=== PATIENT | male | born 1945 | race Caucasian/White ===

== ENCOUNTER 2017-06-17 01:20 | Inpatient (IN) | payer MEDICARE, OTHER ==
[2017-06-17] VITALS (7 sets, daily range): BP systolic 137–158; BP diastolic 67–87
[~2017-06-17] VITALS: Ht 175.3 cm; Wt 97.5 kg
[2017-06-17] MEDS ORDERED: DIOVAN 80 MG TA80 M1 PO (01:33)
[2017-06-17] MEDS ORDERED: CIALIS5 MG PO (01:33)
[2017-06-17] MEDS ORDERED: ADVAIR 250-501 EACH INH (01:33)
[2017-06-17] MEDS ORDERED: VENTOLIN HFA 1818 GM INH (01:34)
[2017-06-17] MEDS ORDERED: ASPIR 8181 MG PO (01:34)
[2017-06-17] MEDS ORDERED: CHERATUSSIN AC118 ML PO (01:35)
[2017-06-17 01:46] LABS: ABSOLUTE EOSINOPHILS 0.1 thou/uL (0.0-0.7); ABSOLUTE LYMPHOCYTES 1.1 thou/uL (0.8-5.3); ABSOLUTE MONOCYTES 0.7 thou/uL (0.0-1.2); ABSOLUTE NEUTROPHILS 4.6 thou/uL (1.6-8.1); BASOPHILS 0.4 %; EOSINOPHILS 1.1 %; HEMATOCRIT 44.8 % (42.0-52.0); HEMOGLOBIN 14.8 gm/dL (14.0-18.0); LYMPHOCYTES 16.4 %; MCH 32.2 pg (26.0-34.0); MCHC 33.1 g/dL (28.0-37.0); MCV 97.1 fL (80.0-100.0); MONOCYTES 10.9 %; MPV 8.5 fl. (7.2-11.1); NUCLEATED RBCS 0 /100WBC; PLATELET COUNT* 164 thou/uL (150-400); POLYS 71.2 %; RBC 4.61 mil/uL (4.50-6.00); WBC 6.5 thou/uL (4.0-11.0)
[2017-06-17 01:59] LABS: CALCIUM 9.4 mg/dL (8.5-10.1); CREATININE 0.5 mg/dL (0.6-1.3); POTASSIUM 4.2 mmol/L (3.5-5.1)
[2017-06-17 02:10] LABS: ALBUMIN 3.1 g/dL (3.4-5.0); TOTAL BILIRUBIN 0.4 mg/dL (<0.1-1.0); TOTAL PROTEIN 6.8 g/dL (6.4-8.2)
[2017-06-17 02:17] LABS: INFLUENZA A ANTIGEN None Detected (None Detect); INFLUENZA B ANTIGEN None Detected (None Detect)
[2017-06-17 03:12] LABS: URINE BILIRUBIN NEGATIVE (Negative); URINE BLOOD NEGATIVE (Negative); URINE CLARITY CLEAR; URINE COLOR YELLOW; URINE GLUCOSE-RANDOM NEGATIVE (Negative); URINE KETONES NEGATIVE (Negative); URINE LEUKOCYTES-REFLEX NEGATIVE (Negative); URINE NITRITE-REFLEX NEGATIVE (Negative); URINE PROTEIN 1+ (Negative); URINE SPECIFIC GRAVITY >= 1.030 (1.005-1.030); URINE UROBILINOGEN 0.2 E.U./dl (0.2-1.0)
[2017-06-17] MEDS ORDERED: EXCEDRIN CAPLE1 EACH PO (05:30)
[2017-06-17] MEDS ORDERED: CLARITIN10 MG PO (05:30)
--- NOTE | 2017-06-17 06:31 | NUR ---
PATIENT ARRIVED VIA CART FROM ED AROUND 0435. PT FRUSTRATED TO BE ADMITTED TO HOSPITAL AND VOCAL ABOUT IT. A/OX4, AT BEDSIDE. TELE MONITOR TRACING SR. VSS, AFEBRILE. ON 4L NC, LOOSE COUGH- UNABLE TO COUGH UP. IV'S SALINE LOCKED AND PATENT. REPORTING PAIN IN BACK, REPOSITIONED IN BED AND STATED IT WOULD HELP. SEE ADMISSION HISTORY/ASSESSMENT. MED'S RECONCILED TO BE ORDERED. CALL LIGHT IN REACH, FALL PRECAUTIONS IN PLACE, WILL CONTINUE WITH PLAN OF CARE.
--- NOTE | 2017-06-17 11:26 | EKG ---
[place] [address] ELECTROCARDIOGRAM REPORT Name: CATRACHO CORREIA Room: [address] ADM IN .R.#: [id number] Admission: 06/17/17 Attend Phys: Daniel Vargas MD Discharge: Date of : 49 Report #: [id number] THIS REPORT FOR: //name// [facility] ED Test Date: 2017-06-17 Test Time: 01:51:53 Pat Name: CATRACHO CORREIA Department: Room: [facility] Gender: Medical Surgical Tech: LEYDI Hebert : 1945 Requested By: Lucretia Elder Order Number: [id number] MD: Jasmeet Harmon Measurements Intervals [place] Rate: 86 P: -43 IA: 175 QRS: -14 QRSD: 140 T: -36 QT: 400 QTc: 479 Interpretive Statements Sinus rhythm IVCD, consider atypical RBBB Anteroseptal infarct, age indeterminate No previous ECG available for comparison Electronically Signed On 06-17-2017 11:25:57 SOCIAL WORK INSTRUCTOR by Jasmeet Harmon [email or web address] <ELECTRONICALLY SIGNED> By: Jasmeet Harmon MD, [facility] 06/17/17 1125 0151 0151 Jasmeet Harmon MD, [facility] /EPI
--- NOTE | 2017-06-17 15:55 | NUR ---
CM ASSESSMENT: Pt is A&O. Resides at home with his . Pt requires assist with ADLS. Pt uses a walker for mobility with assist, also has a wc. Pt wears home o2. Hx of HH. No hx of SNF. PT/OT evals ordered. Pt's goal is to return home once medically stable. Supportive family that is involved in POC.
--- NOTE | 2017-06-17 18:14 | NUR ---
ASSUMED CARE OF PT AT 0730. PT CONTINUES TO BE A&O X4 CALM AND COOPERATIVE. HE HAS NO C/O PAIN AND HAS BEEN AMBULATING TO THE BATHROOM WITH 1 ASSIST AND A WALKER. TRACING SA WITH A BBB ON THE MONITOR. PT HAS A GOOD APPETITE AND HAS ATE GREATER THAN 75% OF ALL MEALS TODAY. PT CURRENTLY RESTING IN ROOM IN THE RECLINER WITH . NURSING WILL CONTINUE TO MONITOR.
[2017-06-18] VITALS: BP 139/63
--- NOTE | 2017-06-18 02:15 | NUR ---
RESTING MOST OF NIGHT. AT BEDSIDE. CONT. ABX WITHOUT ADVERSE REACTION NOTED. SLEEPING IN RECLINER. PATIENT VOICES NO COMPLAINTS OF PAIN OR DISCOMFORT. SPUTUM NEEDED WILL ATTEMPT 1ST THINK IN AM. NO SIGNS OF DISTRESS, NO DISCOMFORT. CONT. WITH CURRENT PLAN OF CARE AT THIS TIME.
[2017-06-18 04:00] VITALS: BP 141/66
[2017-06-18 05:38] LABS: HEMATOCRIT 42.6 % (42.0-52.0); HEMOGLOBIN 14.3 gm/dL (14.0-18.0); MCH 32.7 pg (26.0-34.0); MCHC 33.6 g/dL (28.0-37.0); MCV 97.1 fL (80.0-100.0); MPV 9.2 fl. (7.2-11.1); RBC 4.39 mil/uL (4.50-6.00); WBC 5.5 thou/uL (4.0-11.0)
[2017-06-18 06:09] LABS: CALCIUM 8.4 mg/dL (8.5-10.1); CREATININE 0.6 mg/dL (0.6-1.3); MAGNESIUM 1.9 mg/dL (1.8-2.4); POTASSIUM 4.2 mmol/L (3.5-5.1)
[2017-06-18 08:07] VITALS: BP 134/81
[2017-06-18] MEDS ORDERED: NEBULIZER MISCELL (10:50)
[2017-06-18] MEDS ORDERED: DUONEB 2.5-0.5 M3 ML INH (10:50)
--- NOTE | 2017-06-18 10:50 | NUR ---
ORDERS RECEIVED 06/17/17, PATIENT REFUSED EVALUATION 06/17/17. PATIENT SEEN THIS DATE FOR SKILLED OT EVALUATION AND PAITENT/SPOUSE DECLINED SERVICES. THEY STATE THAT THEY ARE WELL EQUIPED AT HOME AND HAVE THEIR ROUTINE, CARES FOR PATIENT. THEY BOTH STATE THAT THEY FEEL MORE COMFORTABLE AT HOME THAN HERE AND WISH TO RETURN HOME SOON PHYSICIANS RELEASE, AWAITING ORAL ANTIBIOTICS INSTEAD OF IV. SKILLED OT SERVICES NOT INDICATED AT THIS TIME DUE TO PATIENT AND SPOUSE REFUSAL.
--- NOTE | 2017-06-18 11:46 | NUR ---
P.T. ORDER RECEIVED 06/17/17. P.T. EVAL ATTEMPTED 06/17/17, PT REFUSED. EVAL ATTEMPTED AGAIN TODAY. PT AGAIN REFUSED AND INDICATED HE DOES NOT WISH TO HAVE P.T. SERVICES. WILL DISCHARGE FROM [facility] DUE TO PT REQUEST.
[2017-06-18 16:10] VITALS: BP 110/59
--- NOTE | 2017-06-18 18:28 | NUR ---
ASSUMED CARE OF PT AT 0730. PT CONTINUES TO BE A&O X4 CALM AND COOPERATIVE. PT DENIES ANY C/O PAIN OR DISTRESS. PT AMBULATES TO THE BATHROOM WITH 1 ASSIST AND ROLLING WALKER. PT HAS HAD A GOOD APPETITE AND ATE GREATER THAN 75% OF ALL MEALS TODAY. PT PREFERS TO BE IN THE RECLINER OPPOSED TO THE BED. PT FEET ELEVATED WHILE IN RECLINER. PT MAINTAINING O2 SATS ON 3L VIA NC WITH COARSE AND WHEEZEY LUNG SOUNDS THAT HAVE IMPROVED SINCE YESTERDAY. PT REPORTS FEELING LESS SOA TODAY WHEN AMBUULATING. PT CURRENTLY RESTING IN RECLINER WITH FEET UP WATCHING TV. CALL LIGHT ANND PERSONAL ITEMS IN REACH, NURSING WILL CONTINUE TO MONITOR.
[2017-06-18 20:00] VITALS: BP 141/71
[2017-06-19] VITALS: BP 129/75
[2017-06-19 05:42] LABS: ABSOLUTE EOSINOPHILS 0.1 thou/uL (0.0-0.7); ABSOLUTE LYMPHOCYTES 1.7 thou/uL (0.8-5.3); ABSOLUTE MONOCYTES 0.8 thou/uL (0.0-1.2); ABSOLUTE NEUTROPHILS 5.7 thou/uL (1.6-8.1); BASOPHILS 0.3 %; EOSINOPHILS 1.7 %; HEMATOCRIT 45.5 % (42.0-52.0); HEMOGLOBIN 15.1 gm/dL (14.0-18.0); LYMPHOCYTES 20.6 %; MCHC 33.3 g/dL (28.0-37.0); MCV 99.3 fL (80.0-100.0); MONOCYTES 9.8 %; MPV 9.7 fl. (7.2-11.1); NUCLEATED RBCS 0 /100WBC; PLATELET COUNT* 113 thou/uL (150-400); POLYS 67.6 %; RBC 4.58 mil/uL (4.50-6.00); RDW-CV 13.5 % (10.5-14.5); WBC 8.4 thou/uL (4.0-11.0)
--- NOTE | 2017-06-19 05:42 | NUR ---
ASSUMED CARE OF PT AT 1930, NURSING ASSESSMENT COMPLETED AT START OF SHIFT, PT RESTING IN RECLINER, STATES HE ALWAYS SLEEPS IN RECLINER AT HOME. MED SURG STATUS, SPOUSE AT BEDSIDE, NO CONCERNS VOICED AT THIS TIME. CALL LIGHT REMAINS WITHIN REACH.
[2017-06-19 08:11] VITALS: BP 144/84
--- NOTE | 2017-06-19 09:39 | NUR ---
ASSUMED CARE OF PT THIS AM AROUND 0715- UPON ASSESSMENT PT NOTED TO BE RESTING IN BED SIDE CHAIR- PT A&O X4- CONTINENT OF BOWEL AND BLADDER- EXTENSIVE ASSIST WITH TRANSFERS REQUIRED, WITH RW AND GAIT BELT- CURSE LUNG SOUNDS WITH AUDIBLE WHEEZING NOTED, DRY COUGH NOTED- LABORED BREATHING WITH DYSPNEA NOTED ON EXERTION- VSS, O2 SAT 91% ON 5L HF NC- ABDOMEN SOFT/ROUND/NON-TENDER, BS X4 QUADS- PT REPORTS BM THIS AM- +1 BLE EDEMA NOTED, LEG ELEVATION ENCOURAGED- IV NOTED TO RIGHT AC AND RIGHT HAND SL, IV ABT GIVEN THIS AM, NO ADVERSE REACTIONS TO NOTE- GOOD PO INTAKE NOTED THIS AM WITH BREAKFAST- CHEST X-RAY COMPLETED THIS AM ORDERED, RESULTS SHOW PERSITENT LOWER LOBE ATELECTASIS/PNEUMONITIS, CADIOMEGALY- PT RATES PAIN 5/10 TO BACK THIS AM, DENIES NEED FOR PAIN MEDICATION AT THIS TIME- CALL LIGHT AND PERSOANL BELONGINGS WITH IN REACH- AT SIDE AND ACTIVE IN CARES THIS AM- HOURLY ROUNDS IN PLACE R/T SAFETY/NEEDS- ALL NEEDS MET AT THIS TIME-WCTM
[2017-06-19 15:48] VITALS: BP 144/70
[2017-06-19 16:31] LABS: BE 0.4 mmol/L (-2 to +3); HCO3 23.9 mmol/L (22.0-26.0); PCO2 35.4 mmHg (35.0-45.0); PO2 62.3 mmHg (75.0-100.0); pH 7.448 (7.340-7.450)
--- NOTE | 2017-06-19 17:25 | NUR ---
PT ARVINENLTY RESTING IN RECLINER, AT SIDE VISITING- IV TO RIGHT AC AND RIGHT HAND CONTINUED SL AND FLUSHING WELL- GOOD PO INTAKE NOTED THIS SHIFT WITH MEALS- CHEST X-RAY COMPLETED WITH RESULTS SEEN PER , NEW ORDERS NOTED TO OBTAIN SPUTUM, ABG'S, AZACTAM IV TID, AND PULMONARY CONSULT- IC ABT GIVEN PRESCRIBED, NO ADVERSE REACTIONS TO NOTE- PLANS FOR PT TO TRANSFER ROOMS IN PLACE, REPORT CALLED TO ELIJAH BECK AT 1420- PT AWAITTING OPEN ROOM FOR TRANSFER AT THIS TIME-CALL LIGHT AND PERSONAL BELONGINGS WITH IN REACH- ALL NEEDS MET AT THIS TIME-WCTM
[2017-06-19 20:00] VITALS: BP 159/90
[2017-06-20 03:48] LABS: HEMATOCRIT 43.5 % (42.0-52.0); HEMOGLOBIN 14.8 gm/dL (14.0-18.0); MCH 32.7 pg (26.0-34.0); MCHC 34.1 g/dL (28.0-37.0); MCV 96.1 fL (80.0-100.0); MPV 9.1 fl. (7.2-11.1); RBC 4.52 mil/uL (4.50-6.00); RDW-CV 13.1 % (10.5-14.5); WBC 8.3 thou/uL (4.0-11.0)
[2017-06-20 04:01] LABS: CALCIUM 8.9 mg/dL (8.5-10.1); CREATININE 0.6 mg/dL (0.6-1.3); MAGNESIUM 1.9 mg/dL (1.8-2.4)
--- NOTE | 2017-06-20 06:41 | NUR ---
ASSUMED PATIENT CARE AT 1900. PATIENT ALERT AND ORIENTED TIMES FOUR. O2 AT 6L VIA NC, SATURATION LEVEL AT 88%. PATIENT AND SPOUSE,AT BEDSIDE, COMFORTABLE WITH THIS NUMBER. SOME INCREASE IN WORK OF BREATHING IN THE EARLY AM. PATIENT STATES THAT HE "IS CONGESTED". ENCOURAGED PATIENT TO BLOW HIS NOSE AND ALSO ENCOURAGED PURSED LIP BREATHING. PATIENT SLEPT WHEN BREATHING BECAME EASIER. PATIENT SLEEPS IN RECLINER AT BEDSIDE. USES URINAL INDEPENDENTLY. IV FROM EMS REMOVED FROM RIGHT WRIST PATIENT ACCIDENTLY HIT IT. REFUSED NEW IV "FOR NOW" STATED SHE "WOULD AGREE TO ONE IN SHE HAD TO" BUT "I AM SO COVERED IN BRUISES ALREADY" HOURLY ROUNDING AND NAVIGATING OFFICER COMPLETED DOCUMENTED.
[2017-06-20 08:00] VITALS: BP 148/76
[2017-06-20 16:00] VITALS: BP 140/85
--- NOTE | 2017-06-20 18:39 | NUR ---
PATIENT IS ALERT AND ORIENTED TODAY VERY PLEASANT. IN ROOM. VITAL SIGNS STABLE ON 7 LITERS OF OXYGEN THROUGH NASAL CANNULA. HAS SOME ANXIETY AT TIME. IV IN RIGHT AC WORKS WELL FOR ANTIBIOTICS. CALL LIGHT IN REACH WILL CONTINUT TO MONITOR.
[2017-06-20 20:00] VITALS: BP 135/82
[2017-06-21] MEDS ORDERED: CEFPODOXIME PR200 M1 PO (11:54)
[2017-06-21] MEDS ORDERED: PREDNISONE 20 M20 M1 PO (11:57)
[2017-06-21 11:59] VITALS: BP 135/82
[2017-06-21] MEDS ORDERED: ACETYLCYST200 MG/11 INH (12:23)
--- NOTE | 2017-06-21 12:35 | NUR ---
VISITED WITH PT IN IN ROOM RE:HOME HEALTH. PT REFUSES HOME HEALTH AT THIS TIME AND STATES HE WILL TALK TO DR BACH AND HAVE THE OFFICE SET UP IF THEY DECIDE TO WANT IT
[2017-06-21 13:53] VITALS: BP 135/82
--- NOTE | 2017-06-21 13:54 | NUR ---
PATIENT IS ALERT AND ORIENTED, FAMILY AT BEDSIDE TODAY. PATIENT HAS DEMANDED TO BE DISCHARGED, 'S RECOMMENDED PATIENT STAY BUT PATIENT WOULD NOT. PATIENT LEFT TO GO HOME AND REFUSED HOME HEALTH WELL. EXPLAINED TO PATIENT THAT PCP FOLLOW UP NEEDS TO BE TOMORROW, PATIENT'S SAID THEY WOULD TRY TO GET IN THURSDAY. EXPLAINED TO PATIENT AND FAMILY THE IMPORTANCE OF MAKING AND KEEPING FOLLOW UPS. DISCHARGE INSTRUCTIONS GIVEN, PRESCRIPTIONS GIVEN AND QUESTIONS ANSWERED FOR PATIENT AND FAMILY.
--- NOTE | 2017-06-22 09:42 | CON ---
[address] [address] CONSULTATION Name: MASOODCATRACHO L Room: [address] IN .R.#: [id number] Admission: 06/17/17 Attend Phys: Daniel Vargas MD Discharge: 06/21/17 Date of : 49 Report #: [id number] THIS REPORT FOR: //name// CC: Daniel Owens DATE OF SERVICE: 06/20/2017 CONSULT REQUESTED BY: Dr. Hector. INDICATION FOR CONSULTATION: COPD. HISTORY OF PRESENT ILLNESS: This is a 71-year-old gentleman, past medical history includes history of COPD. The patient is on oxygen while asleep, not during the day. The patient is a former smoker and has not discontinued. The patient is now admitted here initially on 06/17/2017, presentation was with increasing shortness of breath as well as cough. The patient also reported yellow sputum production. He did not have chest pain. He did not report fever. He did have some nasal discharge and a mild sore throat. No increase in swelling of lower extremities. The patient has been constipated. He answered to the negative for 12 questions for review of systems except as mentioned above, except that he has had some joint pains as well. The patient has been here since 06/17/2017. He has since then been treated with broad spectrum antibiotics, currently he is in fact on Zithromax as well as aztreonam and on ceftriaxone. There are 2 CT chest performed. There is a large radiopaque density developing on the 2nd CT, which is new compared with the patient's first CT. The patient says that he has decided that he will be going home tomorrow by 11 o clock and does not want any intervention, which could possibly lead to a change in his plan. PAST MEDICAL HISTORY: COPD. 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 I do not have any previous pulmonary function tests or measure of his left ventricular ejection fraction available at this time. SOCIAL HISTORY: He was a smoker, more than a pack a day, discontinued several years ago, but he smoked for several decades, only occasional alcohol use. No known history of illegal drug use. CURRENT MEDICATIONS: List in [employer] reviewed. HOME MEDICATIONS: List also [facility] [place] [address] CONSULTATION Name: CATRACHO CORREIA Melissa Room: [address]#: [id number] Admission: 06/17/17 Attend Phys: Daniel Vargas MD Discharge: 06/21/17 Date of : 49 Report #: [id number] FAMILY HISTORY: Noncontributory. PHYSICAL EXAMINATION: GENERAL: He is alert, awake and oriented. VITAL SIGNS: In the records, these are reviewed. ENT: There is no throat erythema. He does, however, have thrush in his mouth. NECK: Does not show raised JVP, asymmetry, mass or lymph nodes. CHEST: Symmetrical expansion on inspection and palpation. On auscultation, breath sounds are equal, decreased. No added sounds. HEART: Regular, no murmur. ABDOMEN: Soft and nontender. EXTREMITIES: Lower extremities showed no edema and no calf tenderness. SKIN: Dry and intact. NEUROLOGICAL: He moves all extremities bilaterally equally and spontaneously, I did not detect any focal deficit at this time. Note that the patient does have a previous history of left-sided hemiparesis. The patient had 2 CAT scans, there is internal development of large opacity at the left lung base on the 2nd CAT scan. There are bilateral infiltrates noted on the 1st at bilateral bases. LABORATORY DATA: The patient's lab work is in [employer] and this is reviewed. ASSESSMENT AND PLAN: 1. Acute on chronic respiratory failure. The patient has required up to 7 liters of oxygen to maintain O2 saturation in the low 90s, at home he is only on oxygen while asleep. He does appear to have a chronic obstructive pulmonary disease exacerbation. There are pulmonary infiltrates noted as mentioned above, in addition, there is a large radiopaque density developing at the right lung base on the second CT, not completely certain the etiology of this opacity. On my review, it appears more likely that this is secondary to atelectasis and not a pleural effusion. 2. Chronic obstructive pulmonary disease exacerbation. The patient is on nebulized bronchodilators. I recommend adding corticosteroids, and I will go ahead and order Solu-Medrol. 3. Pulmonary infiltrates. I feel that there are small pulmonary infiltrates noted on the first CT chest, bilateral basal, these are less clearly defined on the 2nd CT due to partial collapse of the right lower lobe of lung but do appear to be still present. The patient currently is on Zithromax as well as ceftriaxone and aztreonam. For now, I discontinued aztreonam as well as ceftriaxone and ordered cefepime which will provide the same coverage; however, it appears that the patient has community-acquired pneumonia and therefore if he continues to do well, then we would narrow antibiotics soon. 4. Right lower lobe atelectasis/pleural effusion. I feel that mostly we are dealing with atelectasis secondary to mucus plugging. There may be some pleural effusion as well. I will therefore go ahead and order Mucomyst as well as use CPAP and incentive spirometry if the patient is willing, we can place him on BiPAP while asleep as well. However, it is noted [place] [address] CONSULTATION Name: MASOODCATRACHO Melissa Room: [address]#: [id number] Admission: 06/17/17 Attend Phys: Daniel Vargas MD Discharge: 06/21/17 Date of : 49 Report #: [id number] with recommendations is limited. I did try to call the radiologist to discuss this with him; however, I reached voicemail. I may try to call again later, however, it is noted that the patient stated that he does not want to risk any intervention which may lead to him staying in the hospital and he does not therefore want thoracentesis as it will be possible that this leads to him having a complication which extends the stay in the hospital he says, he absolutely wants to leave by 11 o clock tomorrow morning. 5. Mild fluid overload. I will give him one dose of Lasix if he stays in the hospital, then suggesting an echo as well. 6. Thrush. I will give him fluconazole. Thanks for this consultation. <ELECTRONICALLY SIGNED> By: Deepa Lopez MD 06/22/17 0942 1514 [id number] bryce De Los Santos
== END 2017-06-21 14:00 | disposition home or self-care (01) | DRG 177 ==
LOC: M.ERS 01:20 → M.2W 03:57 → M.TBA-ER 03:57 → M.2W 04:50 → M.3W 06-19 18:32
PROVIDERS: Emergency Medicine; Family Medicine; ADMIT Internal Medicine
DX: J15.6 Pneumonia due to other Gram-negative bacteria (principal); J96.21 Acute and chronic respiratory failure with hypoxia; R65.10 Systemic inflammatory response syndrome (SIRS) of non-infectious origin without acute organ dysfunction; I69.954 Hemiplegia and hemiparesis following unspecified cerebrovascular disease affecting left non-dominant side; J44.1 Chronic obstructive pulmonary disease with (acute) exacerbation; J98.11 Atelectasis; J44.0 Chronic obstructive pulmonary disease with (acute) lower respiratory infection; Z96.653 Presence of artificial knee joint, bilateral; Z96.641 Presence of right artificial hip joint; K57.90 Diverticulosis of intestine, part unspecified, without perforation or abscess without bleeding; E87.70 Fluid overload, unspecified; B37.9 Candidiasis, unspecified; I50.9 Heart failure, unspecified; E66.9 Obesity, unspecified; Z66 Do not resuscitate; T17.990A Other foreign object in respiratory tract, part unspecified in causing asphyxiation, initial encounter; X58.XXXA Exposure to other specified factors, initial encounter; Y93.89 Activity, other specified; Y92.89 Other specified places as the place of occurrence of the external cause; Y99.8 Other external cause status; Z90.49 Acquired absence of other specified parts of digestive tract; Z98.49 Cataract extraction status, unspecified eye; Z88.6 Allergy status to analgesic agent; Z88.1 Allergy status to other antibiotic agents; Z87.891 Personal history of nicotine dependence; Z68.31 Body mass index [BMI] 31.0-31.9, adult; Z79.899 Other long term (current) drug therapy; Z91.19 Patient's noncompliance with other medical treatment and regimen

== ENCOUNTER → 2017-07-28 | Outpatient (CLI) | payer MEDICARE, OTHER ==
[~2017-07-28] MED LIST: ACETYLCYST200 MG/11 INH; ADVAIR 250-501 EACH INH; ASPIR 8181 MG PO; CEFPODOXIME PR200 M1 PO; CHERATUSSIN AC118 ML PO; CIALIS5 MG PO; CLARITIN10 MG PO; DIOVAN 80 MG TA80 M1 PO; DUONEB 2.5-0.5 M3 ML INH; EXCEDRIN CAPLE1 EACH PO; NEBULIZER MISCELL; PREDNISONE 20 M20 M1 PO; VENTOLIN HFA 1818 GM INH
== END ==
LOC: M.PUL 12:46
DX: J44.9 Chronic obstructive pulmonary disease, unspecified (principal); J43.8 Other emphysema; J18.9 Pneumonia, unspecified organism; I63.9 Cerebral infarction, unspecified

== ENCOUNTER → 2018-01-13 | Outpatient (CLI) | payer MEDICARE, OTHER | LOC: M.ULTRA 12:34 | DX: I70.8 Atherosclerosis of other arteries (principal); I73.9 Peripheral vascular disease, unspecified; I10 Essential (primary) hypertension; J45.909 Unspecified asthma, uncomplicated ==

== ENCOUNTER 2018-08-15 03:13 | Inpatient (IN) | payer MEDICARE, OTHER ==
[2018-08-15] VITALS (8 sets, daily range): BP systolic 119–144; BP diastolic 41–87
[~2018-08-15] VITALS: Ht 175.3 cm; Wt 68.2 kg
[2018-08-15 03:40] LABS: ABSOLUTE EOSINOPHILS 0.1 thou/uL (0.0-0.7); ABSOLUTE LYMPHOCYTES 2.1 thou/uL (0.8-5.3); ABSOLUTE MONOCYTES 0.8 thou/uL (0.0-1.2); ABSOLUTE NEUTROPHILS 7.4 thou/uL (1.6-8.1); BASOPHILS 0.4 %; EOSINOPHILS 0.9 %; HEMATOCRIT 38.9 % (42.0-52.0); HEMOGLOBIN 13.1 gm/dL (14.0-18.0); LYMPHOCYTES 19.9 %; MCH 31.4 pg (26.0-34.0); MCHC 33.5 g/dL (28.0-37.0); MCV 93.5 fL (80.0-100.0); MONOCYTES 7.9 %; MPV 8.7 fl. (7.2-11.1); NUCLEATED RBCS 0 /100WBC; PLATELET COUNT* 246 thou/uL (150-400); POLYS 70.9 %; RBC 4.17 mil/uL (4.50-6.00); RDW-CV 13.5 % (10.5-14.5); WBC 10.4 thou/uL (4.0-11.0)
[2018-08-15 03:50] LABS: BE 2.4 mmol/L (-2 to +3); pH 7.465 (7.340-7.450)
[2018-08-15 03:50] LABS: ALBUMIN 3.2 g/dL (3.4-5.0); CALCIUM 9.3 mg/dL (8.5-10.1); CREATININE 0.7 mg/dL (0.6-1.3); MAGNESIUM 2.2 mg/dL (1.8-2.4); POTASSIUM 4.1 mmol/L (3.5-5.1); TOTAL BILIRUBIN 0.4 mg/dL (<0.1-1.0)
[2018-08-15 03:52] LABS: PO2 54.2 mmHg (75.0-100.0)
[2018-08-15] MEDS ORDERED: AVAPRO75 MG PO (03:58)
[2018-08-15] MEDS ORDERED: FIORINAL/CODEIN30 M1 (04:06)
[2018-08-15] MEDS ORDERED: AMOXICILLIN 50500 MG (04:07)
[2018-08-15 04:19] LABS: APTT 29.9 Seconds (25.0-31.3)
[2018-08-15 04:38] LABS: INFLUENZA A ANTIGEN None Detected (None Detect); INFLUENZA B ANTIGEN None Detected (None Detect)
--- NOTE | 2018-08-15 15:07 | EKG ---
[place] [address] ELECTROCARDIOGRAM REPORT Name: CATRACHO CORREIA Room: [address] ADM IN M.R.#: [id number] Admission: 08/15/18 Attend Phys: Kenneth Hector, Discharge: Date of : 49 Report #: [id number] THIS REPORT FOR: //name// [facility] ED Test Date: 2018-08-15 Test Time: 03:24:34 Pat Name: CATRACHO MASOOD Department: Room: [facility] Gender: M Physician Assistant Certified: : 1945 Requested By: Coco Chao Order Number: [id number] MD: Esequiel Esteban Measurements Intervals [place] Rate: 92 P: -40 UT: 181 QRS: -21 QRSD: 140 T: -42 QT: 407 QTc: 504 Interpretive Statements Sinus rhythm Atrial premature complex Right bundle-branch block Compared to ECG 06/17/2017 01:51:53 Atrial premature complex(es) now present Myocardial infarct finding no longer present Electronically Signed On 08-15-2018 15:07:38 CDT by Esequiel Esteban [email or web address] <ELECTRONICALLY SIGNED> By: Esequiel Esteban MD, FACC 08/15/18 1507 0324 0324 Esequiel Esteban MD, [facility] /EPI
[2018-08-16] VITALS: BP 122/63
[2018-08-16 04:00] VITALS: BP 121/47
[2018-08-16 04:25] LABS: HEMATOCRIT 37.5 % (42.0-52.0); HEMOGLOBIN 12.5 gm/dL (14.0-18.0); MCH 31.3 pg (26.0-34.0); MCHC 33.4 g/dL (28.0-37.0); MCV 93.8 fL (80.0-100.0); MPV 8.9 fl. (7.2-11.1); NUCLEATED RBCS 0 /100WBC; PLATELET COUNT* 270 thou/uL (150-400); RDW-CV 13.5 % (10.5-14.5); WBC 8.4 thou/uL (4.0-11.0)
[2018-08-16 04:37] LABS: CALCIUM 8.7 mg/dL (8.5-10.1); CREATININE 0.8 mg/dL (0.6-1.3); MAGNESIUM 2.2 mg/dL (1.8-2.4); POTASSIUM 4.6 mmol/L (3.5-5.1)
[2018-08-16 05:51] LABS: ABSOLUTE MONOCYTES 0.1 thou/uL (0.0-1.2); ABSOLUTE NEUTROPHILS 7.3 thou/uL (1.6-8.1); ANISOCYTOSIS 1+; PLATELET ESTIMATE ADEQUATE; POIKILOCYTOSIS 1+
[2018-08-16 08:02] LABS: URINE BILIRUBIN NEGATIVE (Negative); URINE BLOOD NEGATIVE (Negative); URINE CLARITY CLEAR; URINE COLOR DARK YELLOW; URINE GLUCOSE-RANDOM NEGATIVE (Negative); URINE KETONES NEGATIVE (Negative); URINE LEUKOCYTES NEGATIVE (Negative); URINE NITRITE NEGATIVE (Negative); URINE PROTEIN NEGATIVE (Negative); URINE SPECIFIC GRAVITY >= 1.030 (1.005-1.030); URINE UROBILINOGEN 0.2 E.U./dl (0.2-1.0)
[2018-08-16 09:00] VITALS: BP 134/74
[2018-08-16 11:48] VITALS: BP 155/94
--- NOTE | 2018-08-16 13:22 | 2DMMODE ---
[place] [address] 2 D/M-MODE ECHOCARDIOGRAM Name: CATRACHO CORREIA Room: [address] IN [facility]#: [id number] Admission: 08/15/18 Attend Phys: Kenneth Correa Discharge: Date of : 49 Date of Service: 08/16/18 1322 Report #: [id number] THIS REPORT FOR: //name// APPROVED REPORT Study performed: 08/16/2018 10:51:24 EXAM: Comprehensive 2D, Doppler, and color-flow Echocardiogram Patient Location: In-Patient Room #: 222 Status: routine BSA: 2.44 HR: 130 bpm BP: 121/47 mmHg Rhythm: NSR Other Information Study Quality: Poor Technically limited study due to body habitus, poor endocardial definition. Indications Dyspnea Echo Enhancing Agent Indication: Endocardial border delineation Agent(s) / Amount(s) Used: Optison 3 cc 2D Dimensions IVSd: 14.62 (7-11mm) LVOT Diam: 25.46 (18-24mm) LVDd: 56.89 mm PWd: 13.81 (7-11mm) Ascending Ao: 46.05 (22-36mm) LVDs: 45.85 (25-40mm) Aortic Root: 42.88 mm Volumes Left Atrial Volume (Systole) LA ESV Index: 56.70 mL/m2 Aortic Valve AoV Peak Hever.: 1.29 m/s AO Peak Gr.: 6.67 mmHg LVOT Max P.70 mmHg AO Mean Gr.: 3.48 mmHg LVOT Mean P.36 mmHg LVOT Max V: 0.82 m/s AO V2 VTI: 15.88 cm LVOT Mean V: 0.54 m/[place] [address] 2 D/M-MODE ECHOCARDIOGRAM Name: CATRACHO CORREIA Room: [address] IN ..#: [id number] Admission: 08/15/18 Attend Phys: Kenneth Correa Discharge: Date of : 49 Date of Service: 08/16/18 1322 Report #: [id number] MARKIE (VTI): 3.77 cm2 LVOT V1 VTI: 11.77 cm Tricuspid Valve RAP Estimate: 5.00 mmHg TR Peak Gr.: 31.06 mmHg RVSP: 36.00 mmHg PA Pressure: 36.00 mmHg Left Ventricle The left ventricle is normal size. Mild concentric left ventricular hypertrophy. Left ventricular systolic function is mildly decreased. The left ventricular diastolic function is normal. Right Ventricle The right ventricle is normal size. The right ventricular systolic function is normal. Atria Left atrium is severely dilated. The right atrium size is normal. Aortic Valve Mild aortic valve sclerosis. No aortic regurgitation is present. There is no aortic valvular stenosis. Mitral Valve The mitral valve is normal in structure. Trace mitral regurgitation. No evidence of mitral valve stenosis. Tricuspid Valve The tricuspid valve is normal in structure. Trace tricuspid regurgitation. Mild pulmonary hypertension. Pulmonic Valve Pulmonic valve is not well visualized. There is no pulmonic valvular regurgitation. Great Vessels Aortic root is mildly dilated. IVC is not well visualized. Pericardium There is no pericardial effusion. <Conclusion> Mild concentric left ventricular hypertrophy. Left ventricular systolic [place] [address] 2 D/M-MODE ECHOCARDIOGRAM Name: MASOODCATRACHO L Room: [address] IN .R.#: [id number] Admission: 08/15/18 Attend Phys: Kenneth Correa Discharge: Date of : 49 Date of Service: 08/16/181321 Report #: [id number] Left atrium is severely dilated. Mild aortic valve sclerosis. <ELECTRONICALLY SIGNED> By: Jasmeet Harmon MD, FACC 08/16/181321 21 21 Jasmeet Harmon MD, FACC /INF
[2018-08-16 16:20] VITALS: BP 134/84
[2018-08-16 20:00] VITALS: BP 126/70
[2018-08-17] VITALS: BP 111/73
[2018-08-17 04:00] VITALS: BP 127/80
[2018-08-17 04:54] LABS: ABSOLUTE LYMPHOCYTES 0.7 thou/uL (0.8-5.3); ABSOLUTE MONOCYTES 0.5 thou/uL (0.0-1.2); ABSOLUTE NEUTROPHILS 11.4 thou/uL (1.6-8.1); BASOPHILS 0.2 %; HEMATOCRIT 38.5 % (42.0-52.0); HEMOGLOBIN 12.6 gm/dL (14.0-18.0); LYMPHOCYTES 5.7 %; MCH 30.7 pg (26.0-34.0); MCHC 32.7 g/dL (28.0-37.0); MPV 9.3 fl. (7.2-11.1); NUCLEATED RBCS 0 /100WBC; PLATELET COUNT* 284 thou/uL (150-400); POLYS 90.1 %; RDW-CV 13.7 % (10.5-14.5); WBC 12.7 thou/uL (4.0-11.0)
[2018-08-17 05:22] LABS: CALCIUM 8.7 mg/dL (8.5-10.1); CREATININE 0.8 mg/dL (0.6-1.3); MAGNESIUM 2.2 mg/dL (1.8-2.4); POTASSIUM 4.5 mmol/L (3.5-5.1)
[2018-08-17 06:18] LABS: BE 0.5 mmol/L (-2 to +3); PCO2 40.8 mmHg (35.0-45.0); pH 7.409 (7.340-7.450)
--- NOTE | 2018-08-17 12:33 | CON ---
[address] [address] CONSULTATION Name: CATRACHO CORREIA Room: [address] IN .[place].#: [id number] Admission: 08/15/18 Attend Phys: Kenneth Hector, Discharge: Date of : 49 Report #: [id number] THIS REPORT FOR: //name// CC: DR DARIUSZ Hector DATE OF SERVICE: 08/15/2018 ATTENDING PHYSICIAN: Dr. Moore. The patient is located in room 222. INDICATION FOR CONSULTATION: Left lower lobe pneumonia, CVA, aspiration. CLINICAL SUMMARY: The patient is a pleasant 73-year-old male, prior smoker with multiple medical problems. He was admitted to the hospital with a 3-4 day history of increasing cough with congestion. His was sick all last week. She states he just had a head cold and a viral infection, and she noticed the patient getting sick around or Thursday of last week with cough and congestion. He was more short of breath. He did have a few nebulizer treatments left at home, and she gave him a couple of nebulizer treatments, which did not seem to help. He continued to be congested, was seen in the Emergency Room. He was hypoxic on 6 liters, bumped up to 7-8 liters and then started on IV antibiotics and IV steroids, and he seems to be doing a little bit better. He thinks over the last 8-12 hours he can talk to me in half sentences. He states he does aspirate when he eats still, and he has had a previous hemorrhagic stroke. He has never had a feeding tube as far as he tells me. He has been oxygen dependent for COPD for the last year or two, and initially, he was on 3-4 liters, then it was increased to 6 liters at home and had a 10 liter concentrator placed at home as of last 06/2017 when he was seen by my associate, Dr. Arevalo and Dr. Lopez. He does not walk much at home. I think he transfers, and he has a left-sided hemiparesis. PAST MEDICAL HISTORY: He has had a right-sided hemorrhagic stroke in 2004, left him with left-sided hemiparesis and left facial droop and some intermittent aspiration. He has had COPD. He has had a right bundle branch block. He has had rheumatic fever in the past. He has had chronic left shoulder pain. He has had left shoulder surgery, bilateral knee replacement. PAST SURGICAL HISTORY: Right hip replacement. He has had chronic left shoulder pain. OUTPATIENT MEDICATIONS: Included aspirin 81 mg daily, albuterol inhaler, DuoNeb treatments at home. He is also on tadalafil 5 [place] [address] CONSULTATION Name: CATRACHO CORREIA Room: [address]#: [id number] Admission: 08/15/18 Attend Phys: Kenneth Hector, Discharge: Date of : 49 Report #: [id number] Cheratussin AC syrup 10 mL q.6 hours and Advair 250/50 one puff b.i.d. He should be using his DuoNeb nebulizers twice daily at home, he is on every 4 hours at this time. Also, in the hospital, he is on Solu-Medrol 60 mg IV push every 8 hours as well as cefepime 1 gram IV piggyback q.12 hours. ALLERGIES: HE HAS ALLERGIES OR INTOLERANCE TO MORPHINE, MOXIFLOXACIN, AVELOX GIVE SOME SHOULDER PAIN AND ALSO LATEX, WHICH GIVES HIM A RASH. FAMILY HISTORY: Negative for premature cardiopulmonary disease. SOCIAL HISTORY: The patient is and lives with his , her name is Magnolia and she seems quite supportive. They live in [place]. He is retired, and he is a prior [id number] history of smoking. He quit in 2004 with his hemorrhagic stroke. Denies any alcohol or illicit drug use. REVIEW OF SYSTEMS: A 14-point review of systems reviewed and negative except for pertinent positives noted in HPI. PHYSICAL EXAMINATION: GENERAL: This is a 73-year-old male who was pleasant, can talk to me in half sentences at this time. VITAL SIGNS: Blood pressure is 138/87. Initial heart rate, one was measured at 140, it was 96 when I auscultated and palpated it. Respirations are 24, slightly labored on 7 liters. His saturation is 95%, and his temperature is 36.7 degrees. He is 5 feet 9 inches tall, weight 133 kilograms or 275 pounds. He has a left facial droop. HEENT: Pharynx is clear. NECK: Supple without nodes. CHEST: Shows rhonchi and expiratory wheeze. He has a few crackles at the left base. HEART: Regular rate and rhythm without murmur, gallop or rub. Heart rate is 96. No S3 is noted. ABDOMEN: Obese, soft without masses or megaly. EXTREMITIES: No calf tenderness. No cyanosis, clubbing or edema. He has some venous stasis changes on his left lower extremity and a compression boot. He has weakness and flexion contracture of his left arm and his left leg. He moves his right arm and his right leg relatively well. LABORATORY DATA: From this morning at 3:30 a.m., hemoglobin is 13, white count is 10,400 and platelets 246,000. Normal differential. Sodium is 137, potassium 4.1, bicarbonate is 33, chloride is 100, BUN is 15, creatinine 0.7 and a glucose is 109. Lactic acid 0.8. LFTs within normal limits. ALT is 28 and albumin is 3.2. ABGs this morning again on 6 liters ending up to 7-8 liters at home, but on 6 liters pO2 is 54, pH 7.46, pCO2 is 37, bicarbonate is 26, sats 89%. Carboxyhemoglobin is only 0.2. Serology, a flu swab is negative for A and B. Chest x-ray shows left lower lobe infiltrate. [place] [address] CONSULTATION Name: CATRACHO CORREIA Room: [address] IN [facility].#: [id number] Admission: 08/15/18 Attend Phys: Kenneth Hector, Discharge: Date of : 49 Report #: [id number] lobe infiltrate a year ago in June, he had some CAT scans done then also. IMPRESSION: 1. Left lower lobe pneumonia, either chronic or recurrent or new onset related aspiration. 2. Hemorrhagic stroke with right-sided stroke and left-sided hemiparesis. 3. Moderate to moderately severe chronic obstructive pulmonary disease, oxygen dependent at 6 liters. 4. Chronic pain syndrome. PLAN: Continue current meds. Continue cefepime, steroids and nebulizer treatments. He needs to keep using his stem therapy by Speech Pathology to avoid aspiration. He seems hopefully can be swallowing better. Hopefully, he will not require a PEG tube. Continue bronchodilators. May need some inhaled budesonide and/or Brovana at home to see if we can have less bronchospasm and better pulmonary clearance. We will have to follow up this left lower lobe infiltrate and make sure he does not need to be scoped. He is a remote smoker. No evidence of lung cancer at this time. The patient is a DNR/DNI, and I will honor his wishes. Continue 5-6 liters and see if we can wean him down in the future. <ELECTRONICALLY SIGNED> By: Patricio Brower MD 08/17/18 1233 1248 [id number] Brower MD /nt
[2018-08-17 12:46] VITALS: BP 119/49
[2018-08-17 17:27] VITALS: BP 110/44
[2018-08-17 19:30] VITALS: BP 96/46
[2018-08-18] VITALS: BP 124/55
[2018-08-18 04:00] VITALS: BP 117/67
[2018-08-18 06:07] LABS: CALCIUM 8.5 mg/dL (8.5-10.1); CREATININE 0.7 mg/dL (0.6-1.3); MAGNESIUM 2.4 mg/dL (1.8-2.4); POTASSIUM 4.8 mmol/L (3.5-5.1)
[2018-08-18 08:00] VITALS: BP 102/63
[2018-08-18 12:22] VITALS: BP 109/59
[2018-08-18 20:30] VITALS: BP 105/62
[2018-08-19 08:00] VITALS: BP 149/75
[2018-08-19 17:03] VITALS: BP 100/69
[2018-08-19 22:00] VITALS: BP 94/62
[2018-08-20] MEDS ORDERED: PREDNISONE 10 M10 MG PO (08:15)
[2018-08-20] MEDS ORDERED: MUCINEX600 MG PO (08:15)
[2018-08-20] MEDS ORDERED: CEFDINIR300 MG PO (08:15)
[2018-08-20] MEDS ORDERED: IPRAT-ALBUT 0.5-3 ML INH (08:15)
[2018-08-20] MEDS ORDERED: SINGULAIR 10 MG10 M1 PO (08:15)
[2018-08-20] MEDS ORDERED: PULMICORT0.5 MG/22 INH ×2 (08:15→11:05)
[2018-08-20] MEDS ORDERED: AZITHROMYCIN 2250 MG PO (08:15)
[2018-08-20] MEDS ORDERED: LASIX 20 MG TAB20 MG PO (08:15)
[2018-08-20] MEDS ORDERED: ADVAIR HFA 230M12 GM INH (08:28)
[2018-08-20] MEDS ORDERED: CHERATUSSIN AC118 ML PO (11:16)
== END 2018-08-20 14:23 | disposition home or self-care (01) | DRG 871 ==
LOC: M.ERS 03:13 → M.TBA-ER 04:22 → M.2W 04:22 → M.ORTHSURG 08-18 16:30
PROVIDERS: Family Medicine; Internal Medicine; Personal Emergency Response Attendant; ADMIT Family Medicine
DX: A41.9 Sepsis, unspecified organism (principal); J15.6 Pneumonia due to other Gram-negative bacteria; J96.21 Acute and chronic respiratory failure with hypoxia; G92 Toxic encephalopathy; I50.41 Acute combined systolic (congestive) and diastolic (congestive) heart failure; J44.1 Chronic obstructive pulmonary disease with (acute) exacerbation; I69.354 Hemiplegia and hemiparesis following cerebral infarction affecting left non-dominant side; J44.0 Chronic obstructive pulmonary disease with (acute) lower respiratory infection; K57.90 Diverticulosis of intestine, part unspecified, without perforation or abscess without bleeding; Z96.653 Presence of artificial knee joint, bilateral; M25.512 Pain in left shoulder; G89.4 Chronic pain syndrome; Z66 Do not resuscitate; I27.20 Pulmonary hypertension, unspecified; Z90.49 Acquired absence of other specified parts of digestive tract; Z98.42 Cataract extraction status, left eye; Z98.41 Cataract extraction status, right eye; Z87.81 Personal history of (healed) traumatic fracture; Z88.6 Allergy status to analgesic agent; Z88.1 Allergy status to other antibiotic agents; Z91.040 Latex allergy status; Z99.81 Dependence on supplemental oxygen; Z87.891 Personal history of nicotine dependence; Z79.899 Other long term (current) drug therapy

== ENCOUNTER 2018-08-30 19:52 | Inpatient (IN) | payer MEDICARE, OTHER ==
[~2018-08-30] VITALS: Ht 175.3 cm; Wt 109.6 kg
[~2018-08-30 19:52] MED LIST changes: +ADVAIR HFA 230M12 GM INH; +AMOXICILLIN 50500 MG; +AVAPRO75 MG PO; +AZITHROMYCIN 2250 MG PO; +CEFDINIR300 MG PO; +FIORINAL/CODEIN30 M1; +IPRAT-ALBUT 0.5-3 ML INH; +LASIX 20 MG TAB20 MG PO; +MUCINEX600 MG PO; +PREDNISONE 10 M10 MG PO; +PULMICORT0.5 MG/22 INH; +SINGULAIR 10 MG10 M1 PO
[2018-08-30 19:56] VITALS: BP 101/71
[2018-08-30 20:27] LABS: HEMATOCRIT 40.1 % (42.0-52.0); HEMOGLOBIN 13.2 gm/dL (14.0-18.0); MCH 31.2 pg (26.0-34.0); MCHC 32.8 g/dL (28.0-37.0); MCV 95.2 fL (80.0-100.0); MPV 9.6 fl. (7.2-11.1); NUCLEATED RBCS 0 /100WBC; PLATELET COUNT* 211 thou/uL (150-400); RBC 4.21 mil/uL (4.50-6.00); WBC 15.7 thou/uL (4.0-11.0)
[2018-08-30 20:39] LABS: BE 3.4 mmol/L (-2 to +3); PCO2 46.6 mmHg (35.0-45.0); pH 7.409 (7.340-7.450)
[2018-08-30 20:42] LABS: PO2 161.3 mmHg (75.0-100.0)
[2018-08-30 20:46] LABS: APTT 25.9 Seconds (25.0-31.3); INR 1.1; PROTIME 11.1 Seconds (9.20-11.50)
[2018-08-30 21:04] LABS: CALCIUM 9.1 mg/dL (8.5-10.1); POTASSIUM 5.2 mmol/L (3.5-5.1); TOTAL BILIRUBIN 0.5 mg/dL (<0.1-1.0); TOTAL PROTEIN 6.5 g/dL (6.4-8.2); TROPONIN-I LEVEL 0.44 ng/mL (<0.06)
[2018-08-30 21:11] LABS: ABSOLUTE LYMPHOCYTES 1.4 thou/uL (0.8-5.3); ABSOLUTE MONOCYTES 0.8 thou/uL (0.0-1.2); ABSOLUTE NEUTROPHILS 13.5 thou/uL (1.6-8.1)
[2018-08-30 21:12] LABS: PLATELET ESTIMATE ADEQUATE
--- NOTE | 2018-08-30 21:21 | NUR ---
WENT OVER PT ALLERGIES WITH . PT TACHY GIVEN ORDERED LOPRESSOR THEN AFTER ADMINISTARTION STATED THAT PT HAD A "REACTION" TO THAT BEFORE ON LAST ADMISSION AND AT [facility]. NOTIFIED DR AGUILAR.
[2018-08-30 23:41] VITALS: BP 113/60
[2018-08-31] VITALS (11 sets, daily range): BP systolic 87–150; BP diastolic 53–101
--- NOTE | 2018-08-31 04:49 | NUR ---
PT RECEIVED FROM ED AT [facility]. ALERT AND ORIENTED X4. CALL LIGHT WITHIN REACH AND BED IN LOW POSITION. PT TRACING AFIB ON THE MONITOR, INFORMED PHYSICIAN, STARTED ON CARDIZEM DRIP. DENIES PAIN. SOB PRESENT AT REST. SAT MAINTAINED IN 9L HFC. HOURLY ROUNDING DONE FOR PT SAFETY.
--- NOTE | 2018-08-31 12:28 | NUR ---
Nutrition: Consult received for "weight change." Pt has had an increase in weight R/T fluid. CHF and cardiogenic shock. Recent PNA. On lasix, low Na diet, DAILY WTS. Labs: BG 152, alb 3, BNP 68388, K+ 5.2, Na 135. Current wt: 219#. H/o CHF, severe COPD. RD will follow daily wts and po intake and labs. Mild risk at this time.
--- NOTE | 2018-08-31 14:31 | NUR ---
ATTEMPTED TO SEE PT X2 TODAY, UNABLE. WILL SEE LATER
--- NOTE | 2018-08-31 17:04 | EKG ---
[place] [address] ELECTROCARDIOGRAM REPORT Name: CATRACHO CORREIA Room: [address] ADM IN .R.#: [id number] Admission: 08/30/18 Attend Phys: Denilson Fountain MD Discharge: Date of : 49 Report #: [id number] THIS REPORT FOR: //name// [facility] ED Test Date: 2018-08-30 Test Time: 20:43:44 Pat Name: CATRACHO CORREIA Department: Room: [address] Gender: M Rn Telephone Triage: MR : 1945 Requested By: Denilson Fountain Order Number: [id number] MD: Esequiel Esteban Measurements Intervals [place] Rate: 156 P: [place]: QRS: 57 QRSD: 134 T: -59 QT: 304 QTc: 490 Interpretive Statements Atrial fibrillation with rapid ventricular response Ventricular premature complex Right bundle branch block Compared to ECG 08/15/2018 03:24:34 Ventricular premature complex(es) now present Electronically Signed On 08-31-2018 17:04:15 CDT by Esequiel Esteban [email or web address] <ELECTRONICALLY SIGNED> By: Esequiel Esteban MD, FACC 08/31/18 1704 42 42 Esequiel Esteban MD, FAC /EPI
--- NOTE | 2018-08-31 17:05 | EKG ---
[place] [address] ELECTROCARDIOGRAM REPORT Name: CATRACHO CORREIA Room: [address] ADM IN .R.#: [id number] Admission: 08/30/18 Attend Phys: Denilson Fountain MD Discharge: Date of : 49 Report #: [id number] THIS REPORT FOR: //name// [facility] Test Date: 2018-08-30 Test Time: 23:42:05 Pat Name: CATRACHO CORREIA Department: Room: [facility] Gender: M Rn Advanced: GINNA : 1945 Requested By: Selvin Kraus Order Number: [id number] MD: Esequiel Esteban Measurements Intervals [place] Rate: 138 P: [place]: QRS: 106 QRSD: 145 T: -30 QT: 335 QTc: 508 Interpretive Statements Atrial fibrillation RBBB Inferior infarct, age indeterminate, possible Compared to ECG 08/15/2018 03:24:34 Possible myocardial infarct finding now present Sinus rhythm no longer present Atrial premature complex(es) no longer present Electronically Signed On 08-31-2018 17:05:45 CDT by Esequiel Esteban [email or web address] <ELECTRONICALLY SIGNED> By: Esequiel Esteban MD, FACC 08/31/18 1705 [id number] [id number] Esequiel Esteban MD, FAC /EPI
[2018-09-01] VITALS: BP 124/100
--- NOTE | 2018-09-01 03:31 | NUR ---
RECIEVED REPORT AND ASSUMED CARE AT 1900. FIELD RESEARCH ASSOCIATE IN PLACE. BP ELEVATED, RESP ELEVATED, OTHER THAN THAT VITAL SIGNS STABLE. PT IS BED REST. PT HAS SOME ANXIETY AND RECENTLY HAD PRN ANXIETY MEDS WHEN I CAME ON ORDERED. PT WAS HAVING SOME DYSPNEA AT START OF MY SHIFT HAD BREATHING TX AND OXYGEN HELPED MANAGE DYSPNEA. PT HEART RATE WAS TACHY AT BEGINING OF SHIFT AND RIGHT BEFORE PT PASSED HE WENT LOGAN THEN HEART STOPPED. HOURLY ROUNDING DONE AND NEEDS MET. PT ONLY LET STAFF REPOSITION ONCE DUE TO PAIN THAT OCCURED WTIH REPOSITIONING.
--- NOTE | 2018-09-01 08:10 | NUR ---
RECEIVED REPORT FROM [facility] [employer] NURSE AT 0715 STATING THAT PT IS ANS AWAITING FOR HOME TO RIGHT OF WAY CUTTER. THIS NURSE WENT IN PT ROOM TO SEE FAMILY. FAMILY REUNION AT BEDSIDE. THE PT LAYING IN BED. JEWELRY, DENTURES, AND OTHER BODY ACCESSORIES NOT PRESENT. NURSE STATED CONDOLENCES TO FAMILY. HOME CAME FOR RIGHT OF WAY CUTTER AT 0800. PT LEFT UNIT WITH SPEAKS HOME AT 0830. PAPER WORK COPIES GIVEN TO HOME TRANSPORTERS AND SAVED IN CHART
--- NOTE | 2018-09-01 09:13 | CON ---
[address] [address] CONSULTATION Name: MASOODCATRACHO Melissa Room: [address] IN .R.#: [id number] Admission: 08/30/18 Attend Phys: Denilson Fountain MD Discharge: 09/01/18 Date of : 49 Report #: [id number] THIS REPORT FOR: //name// CC: Denilson Owens MD CARDIOLOGY CONSULT INDICATION: New onset atrial fibrillation with rapid ventricular response rate. HISTORY OF PRESENT ILLNESS: The patient is a very pleasant 73-year-old gentleman, who has left-sided paresis after hemorrhagic stroke in 2004. He has severe COPD. He was recently hospitalized with COPD exacerbation and pneumonia. After treatment with intravenous antibiotics and steroids and adjustment to his medications, he was sent home. Prior to coming to the hospital, he noted palpitations and rapid heartbeat. He was also having some midsternal chest discomfort. He had cough with increasing sputum production. In the Emergency Room, he was found to be in atrial fibrillation with a rapid ventricular response rate. He was admitted for further treatment. He denies fevers. He is not having shortness of breath at rest. He continues to have palpitations. In this setting, his troponin has been 0.44, 0.46, and 0.44. His chest pain has been prolonged in nature. EKG shows atrial fibrillation with a rapid ventricular response rate, right bundle branch block. There is some diffuse upsloping ST segment depression noted. At the time of my interview, the patient was pain free. He continues to have the atrial fibrillation with a rapid ventricular response rate. He had hypotension associated with diltiazem drip, which was discontinued. He is now on amiodarone drip after bolus. PAST MEDICAL HISTORY: 1. Hemorrhagic stroke in 2004. 2. COPD. 3. Pulmonary hypertension. 4. 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 5. Left-sided hemiparesis after hemorrhagic stroke. 6. Appendectomy remotely. 7. Skull fracture remotely. 8. Bilateral knee replacements. 9. Thyroid tumor removed. 10. Right hip replacement. 11. Chronic right bundle-branch block. 12. Cataract removal with lens implants bilaterally. 13. History of rheumatic fever. 14. Diverticulosis. 15. [place] [address] CONSULTATION Name: CATRACHO CORREIA Room: [address]#: [id number] Admission: 08/30/18 Attend Phys: Denilson Fountain MD Discharge: 09/01/18 Date of : 49 Report #: [id number] FAMILY HISTORY: Noncontributory. SOCIAL HISTORY: The patient quit smoking over 30 years ago. He does not drink alcohol. He is . His is in attendance with him presently. ALLERGIES: LATEX, SINGULAIR, MORPHINE, AVELOX. HOME MEDICATIONS: Advair 250/50 mcg one puff b.i.d., Cialis 5 mg daily, aspirin 81 mg daily, Ventolin 2 puffs q. 6 hours p.r.n., loratadine 10 mg daily, Avapro 75 mg daily, Pulmicort 0.5 mg inhaled b.i.d., guaifenesin syrup 10 mL q. 4 hours p.r.n. PHYSICAL EXAMINATION: VITAL SIGNS: Blood pressure 102/53, pulse is in the 130s and irregular. GENERAL: A pleasant gentleman, who is in no distress. Mood and affect appropriate. HEENT: Extraocular muscles intact. Mucous membranes are moist. NECK: Shows no obvious jugular venous distention. I do not appreciate bruit. CHEST: Reveals coarse breath sounds throughout without rales or wheezes. CARDIOVASCULAR: Reveals an irregularly irregular rhythm that is rapid. I do not appreciate obvious gallop or murmur. ABDOMEN: Reveals normal bowel sounds. The abdomen is soft, nontender. EXTREMITIES: Shows trace to 1+ pitting edema. SKIN: Dry. LABORATORY DATA: A 12-lead EKG shows atrial fibrillation with rapid ventricular response rate and right bundle branch block. There is diffuse upsloping ST segment depression. Labs are reviewed. NT-proBNP in the setting of atrial fibrillation is 12,063. Troponins are 0.46, 0.44, and 0.46. IMPRESSION AND RECOMMENDATIONS: 1. Atrial fibrillation with rapid ventricular response rate. We will re-bolus with amiodarone and continue amiodarone drip at this time. If we continue to have trouble with rate control, we will consider digoxin loading. Ultimately, I would like to attempt rhythm control. CHADS score is 2 if you consider his hemorrhagic stroke history. This was not an embolic stroke. With his CHADS score being relatively low, I am not inclined to start anticoagulant at this time. 2. Acute on chronic diastolic heart failure secondary to atrial fibrillation with rapid ventricular response rate. He received IV Lasix earlier. He is presently stable. We will follow clinically. 3. Hypercoagulability due to atrial fibrillation. As outlined, his CHADS score is fairly low with history as outlined above. I am hesitant to start blood [facility] [address] [place] [address] CONSULTATION Name: CATRACHO CORREIA Room: [address]#: [id number] Admission: 08/30/18 Attend Phys: Denilson Fountain MD Discharge: 09/01/18 Date of : 49 Report #: [id number] thinners at this time. We will follow clinically. 4. Chronic obstructive pulmonary disease per primary physician. 5. Type 2 myocardial infarction likely secondary to strain from atrial fibrillation with rapid ventricular response rate. We will follow clinically at this point in time. <ELECTRONICALLY SIGNED> By: Esequiel Esteban MD, FACC 09/01/18 0913 1148 [id number] Esteban MD, FACC /nt
== END 2018-09-01 02:00 ==
LOC: M.ERS 19:52 → M.TBA-ER 22:14 → M.2W 22:14
PROVIDERS: Family Medicine; ADMIT Internal Medicine
DX: I21.A1 Myocardial infarction type 2 (principal); I50.43 Acute on chronic combined systolic (congestive) and diastolic (congestive) heart failure; J96.21 Acute and chronic respiratory failure with hypoxia; I44.2 Atrioventricular block, complete; D68.59 Other primary thrombophilia; J44.0 Chronic obstructive pulmonary disease with (acute) lower respiratory infection; R57.0 Cardiogenic shock; Z96.653 Presence of artificial knee joint, bilateral; Z96.641 Presence of right artificial hip joint; K57.90 Diverticulosis of intestine, part unspecified, without perforation or abscess without bleeding; I27.20 Pulmonary hypertension, unspecified; I48.91 Unspecified atrial fibrillation; Z66 Do not resuscitate; Z86.73 Personal history of transient ischemic attack (TIA), and cerebral infarction without residual deficits; Z90.49 Acquired absence of other specified parts of digestive tract; Z98.42 Cataract extraction status, left eye; Z98.41 Cataract extraction status, right eye; Z88.6 Allergy status to analgesic agent; Z88.1 Allergy status to other antibiotic agents; Z91.040 Latex allergy status; Z87.81 Personal history of (healed) traumatic fracture; Z87.891 Personal history of nicotine dependence